=== PATIENT | female | born 1970 | race Caucasian/White ===

== ENCOUNTER 2017-07-08 07:43 | Outpatient (CLI) | payer OTHER ==
--- NOTE | 2017-07-08 09:25 | RAD ---
THREE VIEWS CERVICAL SPINE: Date: 07-08-17 Comparison: None. History: Neck pain, cervical radiculopathy, prior surgery. FINDINGS: Three lateral radiographs are provided, including neutral, flexion, and extension views. There is dis c space narrowing and degenerative endplate change at C4-5. Two separate areas of anterior discectomy and fusion hardware are present, one at C5-6 and one at C6-7. There is posterior fusion hardware pre sent at these levels as well. There is no anterolisthesis or retrolisthesis seen on neutral, flexion or extension views. No prevertebral soft tissue swelling. IMPRESSION: Post-operative and degenerative changes within the cervical spine as above. POS: ALISTAIR
--- NOTE | 2017-07-08 10:49 | MRI ---
CERVICAL SPINE MRI WITHOUT CONTRAST: Date: 07-08-17 Comparison: None. History: Neck pain radiating down the left arm. Technique: Multiplanar, multisequence MR imaging of the cervical spine is obtained without contrast. FINDINGS: There is significant artifact limiting detailed assessment at the C5-6 and C6-7 level on the basis of anterior and posterior metallic fusion hardware. There is mild degenerative changes at the atlantoaxial interspace. Sagittal STIR imaging demonstrates no focal area of osseous marrow edema. C5, C6, and C7 vertebral bodies are limited in assessment on STIR imaging. There is a hemangioma within the T1 vertebral body. C2-3: Facet and uncal vertebral osteophyte formation on the left noted with mild left neural foramina l stenosis. No significant central canal or right neural foraminal stenosis. C3-4: Mild bilateral facet and uncal vertebral osteophyte formation, left greater than right. Mild le ft neural foraminal stenosis. No central canal or right neural foraminal stenosis. C4-5: Disc space narrowing and disc desiccation noted. There is a prominent central/left paracentral/left foraminal disc herniation. This effaces the ventra l thecal sac and abuts the ventral aspect of the cord with mild/moderate central canal stenosis. Disc extends into the region of the neural foramen on the left with severe left neural foraminal stenosis as well. No significant right neural foraminal stenosis. This disc herniation is best seen on sagittal T2 weighted image 10 and axial gradient echo and T1 lara ge 14. C5-6: Evaluation markedly limited secondary to artifact. C6-7: Evaluation limited secondary to artifact. C7-T1: Bilateral facet hypertrophy, left greater than right, with probable mild right and mild to mod erate left neural foraminal stenosis. There is no definite evidence for severe central canal or neural foraminal stenosis at C5-6 or C6-7. No focal area of abnormal signal intensity is identified within the cervical cord. IMPRESSION: 1. Prominent central/left paracentral/left foraminal disc herniation at C4-5 with associated central canal and left neural foraminal stenosis. 2. Limited assessment at C5-6 and C6-7 on the basis of hardware artifact. POS: JEREMY
== END 2017-07-08 07:44 | disposition home or self-care (01) ==
LOC: TBSIIMAG 07:43
PROVIDERS: ATTEND Neurological Surgery
DX: M47.22 Other spondylosis with radiculopathy, cervical region (principal); M50.121 Cervical disc disorder at C4-C5 level with radiculopathy; M99.81 Other biomechanical lesions of cervical region; Z98.1 Arthrodesis status
CPT/HCPCS: 72040; 72141

== ENCOUNTER 2017-10-14 07:27 | Day surgery (SDC) | payer OTHER ==
[2017-10-13 13:21] VITALS: BMI 26.6
--- NOTE | 2017-10-13 13:45 | HP ---
HISTORY OF PRESENT ILLNESS: Ms. Salinas is a 47-year-old female that presents with neck pain and left-sided numbness and tingling along the C7 dermatome. She also is slightly off balance, which may be residual from before her first cervical spine surgery in which she was unable to walk due to spinal cord compression. She has had this pain for the past few months and it has not gone away, it is worse. There is some weakness in the left triceps and wrist extensors. She has not had any injection of the cervical spine, not had any recent physical therapy. The patient has made some better with ibuprofen and Tylenol. She also takes a PPI. She is also taking PPI for gastric protection. She has a previous history of cervical spine ACDF in 2013 at C6-7 and then again in 2013 for nonfusion, she was fused posteriorly. She also has a C5-6 ACDF in 2016. All these surgeries were done in [place], [place] with Dr. Russell. She has also had an L3-4 laminectomy. REVIEW OF SYSTEMS: A 10-point review of systems has been completed and is negative other than stated above in the HPI. PAST MEDICAL HISTORY: Diabetes, hypertension, hypothyroidism, pseudotumor cerebri, cervical disk disease, chronic pain, GERD. ALLERGIES: SULFA, KAIDEN INHIBITORS. PAST SURGICAL HISTORY: Appendectomy, back surgery, cholecystectomy, gastric bypass, hysterectomy, multiple ACDFs and of revision, lumbar fusion, optic nerve compression. FAMILY HISTORY: Father is due to suicide. Mother is , diagnosed with diabetes, hypertension, heart disease, and stroke. Children are alive. SOCIAL HISTORY: The patient is a smoker. She smokes less than half a pack a day for approximately 20 years. She denies any other tobacco exposure. Does not drink alcohol or use any other illicit drugs. PHYSICAL EXAMINATION: GENERAL: The patient is awake, alert, oriented, does not appear to be in any visible distress. HEENT: Head is normocephalic, atraumatic. RESPIRATORY: Normal work of breathing on room air, normal symmetrical chest rise. CARDIOVASCULAR: Regular rate and rhythm. NEUROLOGIC: Gait and station are normal. Motor exam still complicated by giveway although the deltoid resistance is a bit better today. There was little strength offered in the left hand interosseous. There was a ____ of the ring and little fingers on the left as well. Sensory: Decreased sensation in ulnar distribution, palmar and dorsum, Tinel's on the left. Spine exam; positive Spurling's on the left. MRI; C4-C5 left disk protrusion and kyphosis and Ulnar nerve conduction of the ulnar nerve. No obvious C5 radiculopathy. ASSESSMENT: Cervical disk disorder, C4-5 level radiculopathy, unresponsive spondylosis, radiculopathy and cubital tunnel syndrome on the left. PLAN: Dr. Talbot has offered an ulnar nerve decompression and transposition. Consent; we have discussed the indications, risks, benefits, alternatives, and expected results with surgery. The risks discussed included, but were not limited to bleeding, infection, nerve damage, hand weakness, complex regional pain syndrome, reflex sympathetic dystrophy and cardiopulmonary complications of anesthesia/sedation including . She understands and is willing to proceed with surgery. SULEIMAN
[2017-10-14 08:04] LABS: #Basophils 0.1 thou/uL (0.0-0.2); #Eosinphils 0.2 thou/uL (0.0-0.7); #Lymphocytes 1.8 thou/uL (1.20-3.40); #Monocytes 0.4 thou/uL (0.11-0.59); #Neutrophils 2.2 thou/uL (1.40-6.50); %Basophils 1.6 % (0.0-1.0); %Eosinophils 5.3 % (0.0-10.0); %Lymphocytes 37.7 % (21.0-51.0); %Monocytes 8.7 % (0.0-10.0); %Neutrophils 46.6 % (42.0-75.0); Mean Corpuscular HGB CONC 33.3 g/dL (32.0-36.0); Mean Corpuscular Volume 93.2 fL (78.0-98.0); Mean Platelet Volume 6.9 fL (7.4-10.4); Platelet Count 266 thou/uL (130-400); RBC Distribution Width 11.2 % (11.5-14.5); Red Blood Cell (RBC) Count 3.56 mill/uL (4.20-5.40); White Blood Cell (WBC) Count 4.6 thou/uL (4.8-10.8)
[2017-10-14] MEDS ORDERED: CEFAZOLIN/Water 2 GM/20 ML SYRINGE ONE ×2 (08:20→14:23)
[2017-10-14 08:27] LABS: PTT 28.6 SEC (22.9-36.1); Prothrombin Time 13.4 SEC (12.0-14.7)
[2017-10-14 08:29] LABS: Anion Gap 12 mmol/L (10-20); BUN (Urea Nitrogen) 14 mg/dL (7.0-18.7); Calc. Creatinine Clearance 114 mL/min (70-130); Carbon Dioxide 25 mmol/L (22-29); Chloride 107 mmol/L (98-107); Estimated GFR-MDRD 80; Potassium 3.7 mmol/L (3.5-5.1); Sodium 140 mmol/L (136-145)
[2017-10-14 08:30] LABS: Glucose 94 mg/dL (70-105)
[2017-10-14] MEDS ORDERED: HYDROcodone/Acetaminophen 5/325 mg Tablet ONE ×2 (10:13→14:51)
[2017-10-14] MEDS ORDERED: Midazolam HCl 2 mg/2 ml Vial ONE ×2 (10:15→11:19)
[2017-10-14] MEDS ORDERED: Sodium Chloride 0.9% 10 ML ONE (10:56)
[2017-10-14] MEDS ORDERED: Lidocaine 0.5%/Epinephrine 1:200,000 50 ml Vial ONE (10:56)
[2017-10-14] MEDS ORDERED: Fentanyl 100 MCG/2 ML VIAL ONE ×4 (11:04→13:49)
[2017-10-14] MEDS ORDERED: Bupivacaine HCl 0.5%/Epinephrine 1:200,000/PF 30 ml Vial ONE (11:05)
--- NOTE | 2017-10-14 13:42 | OP ---
DATE OF PROCEDURE: 10/14/2017 SURGEON: Tricia Talbot M.D. SHEETER OPERATOR: Alexandra Rice PA-C. PREOPERATIVE INDICATION: Treat pain, prevent neurological deterioration. PREOPERATIVE DIAGNOSES: Left ulnar neuropathy at the elbow (cubital tunnel syndrome). POSTOPERATIVE DIAGNOSIS: Left ulnar neuropathy at the elbow (cubital tunnel syndrome). OPERATIVE PROCEDURE: Decompression of the ulnar nerve at the elbow with subcutaneous transposition, left side. PREOPERATIVE MEDICATION: Ancef 2 grams IV. DRAIN NUMBER: Zero. DRAIN TYPE: None. OPERATIVE DICTATION: The patient was brought to the operating room. General LMA anesthesia was rachell gold. The entire arm was sterilely prepped and draped. We planned our incision over the cubital tunn el extending to the forearm and into the arm on the ulnar side. We infused local anesthetic into the planned incision. We opened our incision with a 10 blade knife and controlled bleeding with bipolar cautery. We dissected sharply into the cubital tunnel and identified the ulnar nerve. We carried o ur dissection proximally and distally until we had mobilized about 7-10 cm of the nerve. We cut the intermuscular septum above the elbow to allow for smooth transposition to the subcutaneous compartmen t and we cut a notch in the flexure carpi ulnaris fascia to allow smoother return to its normal traje ctory in the forearm, ensured the nerve was loose, both in extension and in flexion. We irrigated co piously with bacitracin irrigation. We tacked down subcutaneous fat to the medial epicondyle as a sl ing to keep the nerve in a transposed position. We then closed subcutaneous tissues and skin in almaz omic layers and applied a sterile dressing. This was a clean case and no contamination.
--- NOTE | 2017-10-14 17:08 | EKG ---
Test Reason : PREOP Blood Pressure : / mmHG Vent. Rate : 056 BPM Atrial Rate : 056 BPM P-R Int : 164 ms QRS Dur : 086 ms QT Int : 464 ms P-R-T Axes : 023 008 032 degrees QTc Int : 447 ms Sinus bradycardia Otherwise normal ECG Confirmed by [facility] BROWNING ([id number]) on 10/14/2017 5:08:37 PM Referred By: MARIA A Confirmed By:[facility] BROWNING
== END 2017-10-14 15:23 | disposition home or self-care (01) ==
LOC: SDC 07:27
PROVIDERS: ATTEND Neurological Surgery
PROC: 01S40ZZ Reposition Ulnar Nerve, Open Approach (ICD-10-PCS; principal; 2017-10-14)
DX: G56.22 Lesion of ulnar nerve, left upper limb (principal); E11.9 Type 2 diabetes mellitus without complications; I10 Essential (primary) hypertension; E03.9 Hypothyroidism, unspecified; K21.9 Gastro-esophageal reflux disease without esophagitis; F17.210 Nicotine dependence, cigarettes, uncomplicated; M50.121 Cervical disc disorder at C4-C5 level with radiculopathy; M50.00 Cervical disc disorder with myelopathy, unspecified cervical region; M47.899 Other spondylosis, site unspecified; Z79.899 Other long term (current) drug therapy; Z88.2 Allergy status to sulfonamides; Z88.8 Allergy status to other drugs, medicaments and biological substances; Z98.1 Arthrodesis status
CPT/HCPCS: 36415; 80048; 85025; 85610; 85730; 93005; 93010; 96374; A4216; J0670; J2001; J2250; J3010; J3490

== ENCOUNTER 2018-04-21 12:43 | Outpatient (CLI) | payer OTHER ==
--- NOTE | 2018-04-21 13:21 | MMO ---
Bilateral MAMMO Bilat Screen DDI+DILEEP. CLINICAL HISTORY: Patient is 47 years old and is seen for screening. The patient has no family history of breast cancer. The patient has no personal history of cancer. VIEWS: The views performed were: bilateral craniocaudal with tomosynthesis and bilateral mediolateral oblique with tomosynthesis. MAMMOGRAM FINDINGS: There are scattered fibroglandular densities. There are benign appearing calcifications seen in both breasts. There are no suspicious masses, calcifications or areas of architectural distortion. IMPRESSION: CALCIFICATIONS IN BOTH BREASTS ARE BENIGN. A ROUTINE FOLLOW-UP MAMMOGRAM IN 1 YEAR IS RECOMMENDED. THE RESULTS OF THIS EXAM WERE SENT TO THE PATIENT. ACR BI-RADS Category 2 - Benign finding MAMMOGRAPHY NOTE: 1. A negative mammogram report should not delay a biopsy if a dominant of clinically suspicious mass is present. 2. Approximately 10% to 15% of breast cancers are not detected by mammography. 3. Adenosis and dense breasts may obscure an underlying neoplasm.
== END 2018-04-21 12:44 | disposition home or self-care (01) ==
LOC: BICMAMMO 12:43
PROVIDERS: ATTEND Family Medicine
DX: Z12.31 Encounter for screening mammogram for malignant neoplasm of breast (principal); R92.1 Mammographic calcification found on diagnostic imaging of breast
CPT/HCPCS: 77063; 77067

== ENCOUNTER 2018-10-28 07:31 | Outpatient (CLI) | payer OTHER ==
--- NOTE | 2018-10-28 11:33 | MRI ---
MRI OF THE LUMBAR SPINE WITH AND WITHOUT CONTRAST: DATE: 10/28/2018. COMPARISON: None available. HISTORY: Low back pain radiating down the right leg for years, worsened recently. History of prior lumbar spi ne surgery. TECHNIQUE: Multiplanar, multisequence MR imaging of the lumbar spine is provided with and without contrast media . FINDINGS: The sagittal STIR imaging demonstrates no focal area of osseous marrow edema. On the basis of 5 lumbar-type vertebral bodies, the conus medullaris terminates at the T12-L1 level. Posterior fusion hardware noted bilaterally at L3-4. There is an intervertebral disk device at the L 3-4 level. T12-L1: Mild bilateral facet hypertrophy. Mild disk space narrowing, disk desiccation, mild disk bu lge, and anterior osteophyte formation. No significant central canal or neural foraminal stenosis. L1-2: Mild bilateral facet hypertrophy. Intervertebral disk height and signal intensity is within n ormal limits. L2-3: Intervertebral disk height and signal intensity within normal limits. Mild bilateral facet hy pertrophy. No significant central canal or neural foraminal stenosis. L3-4: The patient appears status post right hemilaminectomy. There is mild facet hypertrophy bilate rally. There is no significant central canal or neural foraminal stenosis appreciated. L4-5: Moderate bilateral facet hypertrophy and hypertrophy of the ligamentum flavum, right greater t dalton left. There is mild disk bulge with a central disk protrusion. There is a mild/moderate degree o f central canal stenosis at L4-5. No significant neural foraminal stenosis is noted on either side. L5-S1: There is disk space narrowing, disk desiccation, and mild disk bulge. There is bilateral fac et hypertrophy, right greater than left. Facet osteophyte extends into the right neural foramen caus ing a mild to moderate degree of right neural foraminal stenosis. No significant central canal or le ft neural foraminal stenosis. Postcontrast imaging demonstrates no abnormal enhancement involving the contents of the thecal sac, t he imaged osseous structures, or the intervertebral disks. The imaged retroperitoneal structures dem onstrate no acute findings. IMPRESSION: Postoperative and degenerative change within the lumbar spine as detailed above. This includes centr al canal stenosis at L4-5 and right neural foraminal stenosis at L5-S1. POS: OFF
== END 2018-10-28 07:32 | disposition home or self-care (01) ==
LOC: SCSMRI 07:31
PROVIDERS: ATTEND Nurse Practitioner Family
DX: M47.26 Other spondylosis with radiculopathy, lumbar region (principal); M48.061 Spinal stenosis, lumbar region without neurogenic claudication; M48.07 Spinal stenosis, lumbosacral region; Z98.890 Other specified postprocedural states
CPT/HCPCS: 72158